=== PATIENT | female | born 1995 | race Caucasian/White ===

== ENCOUNTER 2017-06-28 11:35 | Emergency (ER) | payer OTHER ==
--- NOTE | 2017-06-28 11:58 | ER Document Report ---
HPI - HPI Patient complains to provider of: sore throat Onset: Last week Onset/Duration: Persistent, Worse Severity: Severe Pain Level: 5 Context: Patient presents emergency department with complaints of severe sore throat. She reports it started last week. She went to an urgent care had a strep test done and it was negative. [place] and it was negative. She also had an ultrasound and a mono test completed, all were negative. She is unsure if a throat culture was completed. Patient reports she was treated with Zithromax and is just finishing the Zithromax today. She reports her throat is swelling more, more on the right side than on the left side. Reports it hurts when she tries to swallow but she reports she is able to swallow. Patient also reports she has had a fever all week long. She reports no fever this morning no antipyretic taken. Denies vomiting diarrhea. Associated Symptoms: Fever Exacerbated by: Denies Relieved by: Denies Similar symptoms previously: Yes Recently seen / treated by doctor: Yes - REPRODUCTIVE Reproductive: DENIES: : Past Medical History - General Information source: Patient Last Menstrual Period: current - Social History Smoking Status: Unknown if Ever Smoked Cigarette use (# per day): No Frequency of alcohol use: None Drug Abuse: None Lives with: Family Family History: Reviewed & Not Pertinent - Medical History Medical History: Negative Past Surgical History: Reports: Hx Orthopedic Surgery - spinal fusion - Immunizations Immunizations up to date: Yes Hx Diphtheria, Pertussis, Tetanus Vaccination: Yes Vertical Provider Document - CONSTITUTIONAL Agree With Documented VS: Yes Exam Limitations: No Limitations General Appearance: WD/WN, No Apparent Distress - nontoxic looking - INFECTION CONTROL TRAVEL OUTSIDE OF THE [place] IN LAST 30 DAYS: No - HEENT HEENT: Atraumatic, Normocephalic, Pharyngeal Exudate. negative: Conjuctival Injection, Tympanic Membrane Red - NECK Neck: Normal Inspection, Supple. negative: Lymphadenopathy-Left, Lymphadenopathy-Right - RESPIRATORY Respiratory: Breath Sounds Normal, No Respiratory Distress - CARDIOVASCULAR Cardiovascular: Regular Rate - MUSCULOSKELETAL/EXTREMETIES Musculoskeletal/Extremeties: CASIMIRO SINCLAIR - NEURO Level of Consciousness: Awake, Alert, Appropriate Motor/Sensory: No Motor Deficit - DERM Integumentary: Warm, Dry Course - Re-evaluation Re-evalutation: 06/28/17 12:[address] soft tissue neck to evaluate for abscess. also do another strep and throat culture. 06/28/17 ct neg for abscess, strep neg. culture pending. I had planned to prescribe steroid injection and possible antibiotics but found the patient just had a steroid injection and is finishing her Zithromax now. Patient was instructed on warm saltwater gargles importance of monitoring symptoms return here if she has trouble swallowing. Patient was also instructed that if the culture comes back and she needs antibiotics different antibiotic she will be contacted. Patient verbalized understanding tall instructions. - Vital Signs Vital signs: Temp Pulse Resp BP Pulse Ox 98.4 F 85 18 103/67 97 06/28/17 11:43 06/28/17 11:43 06/28/17 11:43 06/28/17 11:43 06/28/17 11:43 - Diagnostic Test Radiology reviewed: Image reviewed, Reports reviewed - TECHNIQUE: Post IV contrasted scanning from skull base through lung apices with review of bone, soft tissue and lung windows. Reconstructed coronal and sagittal MPR images reviewed. All images stored on PACS. All CT scanners at this facility use dose modulation, iterative reconstruction, and/or weight based dosing when appropriate to reduce radiation dose to as low as reasonably achievable (ALARA) . [facility]: Dose Right [facility]: CareDose [facility]: Dose Right [facility]: Teradose 4D [facility]: Brain Parade CONTRAST TYPE AND DOSE: contrast/concentration: Isovue 370.00 mg/ ml; Total Contrast Delivered: 75.0 ml; Total Saline Delivered: 55.1 ml RENAL FUNCTION: None required. The patient is less than 50 years old. RADIATION DOSE : CT Rad equipment meets quality standard of care and radiation dose reduction techniques were employed. CTDIvol: 6.6 mGy. DLP: 177 mGy-cm. . LIMITATIONS: None. FINDINGS: SKULL BASE: Inferior brain parenchyma unremarkable MAJOR SALIVARY GLANDS: No solid or cystic masses. No inflammatory changes. LYMPHADENOPATHY: Reactive adenopathy is present, right jugulodigastric lymph node is 1.9 x 1.5 cm in size. Left jugulodigastric lymph node 1.6 x 1 cm in size. MUCOSAL MASSES OR ASYMMETRY: Bilateral pharyngeal tonsils are enlarged, the right tonsil is 2 cm AP x 2 cm transverse by 3 cm craniocaudad. Left tonsil is 2 cm AP x 2 cm transverse by 3.5 cm craniocaudad. No discrete intra tonsillar or peritonsillar abscess. LARYNX/CORDS: No abnormal findings. VASCULAR STRUCTURES: The major vessels are patent. LUNG APICES: Clear. BONES: Intact. THYROID: Normal size. No masses. PARANASAL SINUSES: Clear. OTHER: No other significant finding. IMPRESSION: Enlarged pharyngeal tonsils. No intra tonsillar or peritonsillar abscess. Reactive adenopathy Discharge - Discharge Clinical Impression: Sore throat, Tonsillar exudate Condition: Stable Disposition: HOME, SELF-CARE Instructions: ENT, Use of [id number] Ibuprofen ([facility]), Sore Throat ([facility]) Additional Instructions: *You have been evaluated for a sore throat, tonsillar exudate *A throat culture is pending, you will be contacted should you need another antibiotic *Take ibuprofen or tylenol as indicated for pain *Warm salt water gargles and throat lozenges for comfort *Change toothbrush after two days of finishing your antibiotics *Do not let anyone drink/eat after you *Good hand washing *Follow-up with a primary care provider Friday *Follow up with an ENT *Return to ED for worsening condition change, needs
--- NOTE | 2017-06-28 12:52 | RADIOLOGY REPORT (SQ) ---
EXAM DESCRIPTION: CT SOFT TISSUE NECK WITH COMPLETED DATE/TIME: 06/28/2017 12:27 pm REASON FOR STUDY: increased swelling, diff swallowing COMPARISON: None. TECHNIQUE: Post IV contrasted scanning from skull base through lung apices with review of bone, soft tissue and lung windows. Reconstructed coronal and sagittal MPR images reviewed. All images stored on PACS. All CT scanners at this facility use dose modulation, iterative reconstruction, and/or weight based d osing when appropriate to reduce radiation dose to as low as reasonably achievable (ALARA). [facility]: Dose Right [facility]: CareDose [facility]: Dose Right [facility]: Teradose 4D [facility]: LatinCoin CONTRAST TYPE AND DOSE: contrast/concentration: Isovue 370.00 mg/ml; Total Contrast Delivered: 75.0 ml; Total Saline Delivered: 55.1 ml RENAL FUNCTION: None required. The patient is less than 50 years old. RADIATION DOSE: CT Rad equipment meets quality standard of care and radiation dose reduction techniq ues were employed. CTDIvol: 6.6 mGy. DLP: 177 mGy-cm. . LIMITATIONS: None. FINDINGS: SKULL BASE: Inferior brain parenchyma unremarkable MAJOR SALIVARY GLANDS: No solid or cystic masses. No inflammatory changes. LYMPHADENOPATHY: Reactive adenopathy is present, right jugulodigastric lymph node is 1.9 x 1.5 cm in size. Left jugulodigastric lymph node 1.6 x 1 cm in size. MUCOSAL MASSES OR ASYMMETRY: Bilateral pharyngeal tonsils are enlarged, the right tonsil is 2 cm AP x 2 cm transverse by 3 cm craniocaudad. Left tonsil is 2 cm AP x 2 cm transverse by 3.5 cm craniocaud ad. No discrete intra tonsillar or peritonsillar abscess. LARYNX/CORDS: No abnormal findings. VASCULAR STRUCTURES: The major vessels are patent. LUNG APICES: Clear. BONES: Intact. THYROID: Normal size. No masses. PARANASAL SINUSES: Clear. OTHER: No other significant finding. IMPRESSION: Enlarged pharyngeal tonsils. No intra tonsillar or peritonsillar abscess. Reactive cronell nopathy. TECHNICAL DOCUMENTATION: JOB ID: [id number] Quality ID # [id number]: Final reports with documentation of one or more dose reduction techniques (e.g., Au tomated exposure control, adjustment of the mA and/or kV according to patient size, use of iterative reconstruction technique) 2010 [employer]- All Rights Reserved Reading location - IP/workstation name: [email or web address]
[2017-06-28] MEDS ORDERED: IBUPROFEN 800 MG TABLET PO ONE (13:22)
[2017-06-28 13:51] VITALS: BP 114/71
== END 2017-06-28 13:52 | disposition home or self-care (01) ==
LOC: ER 11:35
DX: J02.9 Acute pharyngitis, unspecified (principal); J35.1 Hypertrophy of tonsils; R50.9 Fever, unspecified
CPT/HCPCS: 70491; 87070; 87880; 99283

== ENCOUNTER 2018-04-16 23:50 | Emergency (ER) | payer SELFPAY ==
[2018-04-17] MEDS ORDERED: NORMAL SALINE 1000 ML 1,000 ML IV ONE (00:51)
[2018-04-17 00:59] LABS: APPEARANCE,URINE CLEAR; BILIRUBIN,URINE NEGATIVE (NEGATIVE); COLOR,URINE AMBER; GLUCOSE, URINE NEGATIVE (NEGATIVE); KETONES,URINE NEGATIVE (NEGATIVE); LEUKOCYTE ESTERASE,URINE MODERATE (NEGATIVE); NITRITE,URINE POSITIVE (NEGATIVE); PROTEIN,URINE 30 mg/dL (NEGATIVE); URINE SPECIFIC GRAVITY 1.011
--- NOTE | 2018-04-17 01:02 | ER Document Report ---
ED General - General Chief Complaint: Flank Pain Stated Complaint: FLANK PAIN Time Seen by Provider: 04/17/18 00:32 Notes: Patient is a 22-year-old female presents with complaint of dysuria. She says she first noticed in some urinary urgency and dysuria approximately 4 days ago. She took Azo which seemed to help but now it is not helping anymore. Said earlier today she had limited pain over her left back. Said that is improving. No fevers. No vomiting. Some nausea. No diarrhea. No abdominal pain. No other complaints at this time. TRAVEL OUTSIDE OF THE [place] IN LAST 30 DAYS: No - Related Data Allergies/Adverse Reactions: amoxicillin [Amoxicillin] Allergy (Verified 06/28/17 11:36) fruits and vegetables Allergy (Uncoded 06/28/17 11:36) Past Medical History - Social History Smoking Status: Unknown if Ever Smoked Frequency of alcohol use: None Drug Abuse: None Family History: Reviewed & Not Pertinent Renal/ Medical History: Denies: Hx Peritoneal Dialysis Past Surgical History: Reports: Hx Orthopedic Surgery - spinal fusion - Immunizations Immunizations up to date: Yes Hx Diphtheria, Pertussis, Tetanus Vaccination: Yes Review of Systems - Review of Systems Notes: My Normal Review Basic REVIEW OF SYSTEMS: CONSTITUTIONAL : Denies fever, chills, or sweats. Denies recent illness. GASTROINTESTINAL: Denies abdominal pain. Some nausea. No vomiting. GENITOURINARY: Burning with urination. Urinary frequency. FEMALE GENITOURINARY: Denies vaginal bleeding, abnormal or irregular periods. MUSCULOSKELETAL: Mild left-sided back pain. NEUROLOGICAL: Denies altered mental status or loss of consciousness. ALL OTHER SYSTEMS REVIEWED AND NEGATIVE. Physical Exam - Vital signs Vitals: Temp Pulse BP Pulse Ox 98.0 F 95 112/72 96 04/17/18 00:00 04/17/18 00:00 04/17/18 00:00 04/17/18 00:00 - Notes Notes: General Appearance: Well nourished, alert, cooperative, no acute distress, no obvious discomfort. well-appearing. Vitals: reviewed, See vital signs table. Lungs: No wheezing, No rales, No rhonci, No accessory muscle use, good air exchange bilaterally. Abdomen: Normal BS, soft, No rigidity, No abdominal tenderness, No guarding, no rebound, no abdominal masses, no organomegaly Back: Negative Igor sign bilaterally. Neuro: speech clear, oriented x 3, normal affect, responds appropriately to questions. Course - Re-evaluation Re-evalutation: 04/17/18 01:22 Patient's urinalysis confirms urinary tract infection which is very consistent with the symptoms that she is presenting with. I do not suspect kidney stone and that she does not have severe pain rating from her back around her flank and she looks very comfortable and is not had any vomiting. At this time I feel she safe to be discharged home. I will give her a dose of Keflex. I informed her that if she develops any rash or itching to take Benadryl to return to the ER. I encouraged her return to ER immediately if she has fevers, vomiting, severe pain, or if she feels that she is worsening in any way. Patient agrees with plan and will be discharged home. Dictation of this chart was performed using voice recognition software; therefore, there may be some unintended grammatical errors. - Vital Signs Vital signs: Temp Pulse Resp BP Pulse Ox 98.0 F 95 112/72 96 04/17/18 00:00 04/17/18 00:00 04/17/18 00:00 04/17/18 00:00 - Laboratory Laboratory results interpreted by me: 04/16/18 23:59 Urine Protein 30 H Urine Blood MODERATE H Urine Nitrite POSITIVE H Urine Urobilinogen 4.0 H Ur Leukocyte Esterase MODERATE H Discharge - Discharge Clinical Impression: Urinary tract infection Qualifiers: Urinary tract infection type: site unspecified Hematuria presence: with hematuria Qualified Code(s): N39.0 - Urinary tract infection, site not specified; R31.9 - Hematuria, unspecified Condition: Good Disposition: HOME, SELF-CARE Additional Instructions: URINARY TRACT INFECTION: Your evaluation indicates that you have a urinary tract infection. This is due to germs growing in the bladder. This is a common problem. This infection usually responds quickly to antibiotics. Your antibiotic should be taken exactly as prescribed. Drink plenty of fluids -- three to four quarts a day. Occasionally, a bladder anesthetic will be prescribed to help stop the feeling of urgency until the antibiotic has a chance to clear the infection. This may cause your urine to be dark orange. Certain urine infections require a culture. If the doctor obtained a culture, the results will be back in two days. You should call to see if a change in treatment is needed. A repeat urinalysis after you finish treatment is often recommended. The physician will let you know if further testing is required. Call the doctor if you develop fever, chills, flank pain, inability to urinate, or blood in the urine. ANTIBIOTIC THERAPY: You have been given an antibiotic prescription. It's important that you take all the medication, unless instructed otherwise by your physician. Failure to complete the entire course can result in relapse of your condition. Common side effects of antibiotics include nausea, intestinal cramping, or diarrhea. Women may develop vaginal yeast infections, and babies can get yeast (thrush) in the mouth following the use of antibiotics. Contact your physician if you develop significant side effects from this medication. Allergy to this antibiotic can result in hives, wheezing, faintness, or itching. If symptoms of allergy occur, stop the medication and call the doctor. CEPHALEXIN: The antibiotic you've been prescribed is a member of the cephalosporin class. This type of antibiotic covers a wide variety of infections, including those of the skin, lungs, and urinary tract. It's useful for staph infections. This antibiotic is slightly similar to the penicillin family. In rare cases, a person who is allergic to penicillin will also be allergic to this medication. If you have had a severe allergic reaction to penicillin, and have not taken this antibiotic since that time, notify your doctor. Antibiotics which cover many germs ("broad spectrum" antibiotics) are more likely to cause diarrhea or "yeast" infections. Women prone to vaginal yeast problems may suffer an attack after taking this antibiotic. In infants, oral thrush (white spots "stuck" on the cheek) or yeast diaper rash may result. See your doctor if these problems occur. Call at once if you develop itching, hives, shortness of breath, or lightheadedness. FOLLOW-UP CARE: If you have been referred to a physician for follow-up care, call the physicians office for an appointment as you were instructed or within the next two days. If you experience worsening or a significant change in your symptoms, notify the physician immediately or return to the Emergency Department at any time for re-evaluation. Please return to the ER immediately if you develop vomiting, fevers, severe pain into your back or flank, or if you feel that you are worsening in any way. Prescriptions: Cephalexin Monohydrate [Keflex 500 mg Capsule] 500 mg PO BID 5 Days #10 capsule
[2018-04-17] MEDS ORDERED: CEPHALEXIN 500 MG CAPSULE PO ONE (01:18)
[2018-04-17 01:54] VITALS: BP 115/70
== END 2018-04-17 01:35 | disposition home or self-care (01) ==
LOC: ER 23:50
DX: N39.0 Urinary tract infection, site not specified (principal); R31.9 Hematuria, unspecified; R11.0 Nausea; Z98.1 Arthrodesis status; M54.89 Other dorsalgia; Z88.0 Allergy status to penicillin; Z91.018 Allergy to other foods
CPT/HCPCS: 81001; 81025; 99283

== ENCOUNTER 2018-05-26 09:08 | Emergency (ER) | payer SELFPAY ==
[2018-05-26] MEDS ORDERED: NORMAL SALINE 1000 ML 1,000 ML IV ONE ×2 (10:14→10:15)
--- NOTE | 2018-05-26 10:14 | ER Document Report ---
ED General - General Chief Complaint: Nausea/Vomiting/Diarrhea Stated Complaint: VOMITING Time Seen by Provider: 05/26/18 10:10 Primary Care Provider: PENELOPE CHILEL MD [COMMUNITY BASED STAFF] - Follow up in 3-5 days (or your primary care. ) Notes: Patient is a 22-year-old female that presents to the emergency department for chief complaint of nausea, vomiting and diarrhea. Patient reports that the symptoms started around 1 AM this morning, was severe nausea, and had vomiting just prior to ED arrival, and several episodes of having loose stool. Denies any new foods, or undercooked foods, no sick contacts that she is aware of, she is had some abdominal aching, but otherwise denies any significant abdominal pain. Denies any hematuria, dysuria, vaginal bleeding or discharge. She does not believe that she is currently. Past Medical History: Denies chronic medical conditions Past Surgical History: Spinal fusion surgery Social History: Admits to occasional alcohol use, denies tobacco or drug use. Family History: Reviewed and noncontributory for presenting illness Allergies: Reviewed, see documented allergy list. REVIEW OF SYSTEMS: Other than noted above, the 12 point review of systems was reviewed with the patient and were negative, all pertinent findings are included in the HPI. PHYSICAL EXAMINATION: Vital signs reviewed, nursing noted reviewed. GENERAL: Patient appears mildly dehydrated, but in no acute distress HEAD: Atraumatic, normocephalic. EYES: Eyes appear normal, extraocular movements intact, sclera anicteric, conjunctiva are normal. ENT: nares patent, oropharynx clear without exudates. Mucous membranes appear mildly dry NECK: Normal range of motion, supple without lymphadenopathy LUNGS: Breath sounds clear to auscultation bilaterally and equal. No wheezes rales or rhonchi. HEART: Heart rate tachycardic, regular rhythm. ABDOMEN: Soft, nontender, normoactive bowel sounds. No rebound, guarding, or rigidity. No masses appreciated. EXTREMITIES: Nontender, good range of motion, no pitting or edema. NEUROLOGICAL: No focal neurological deficits. Moves all extremities spontaneously Motor and sensory grossly intact on exam. PSYCH: Normal mood, normal affect. SKIN: Warm, Dry, normal turgor, no rashes or lesions noted on exposed skin TRAVEL OUTSIDE OF THE [place] IN LAST 30 DAYS: No - Related Data Allergies/Adverse Reactions: amoxicillin [Amoxicillin] Allergy (Verified 05/26/18 09:16) fruits and vegetables Allergy (Uncoded 06/28/17 11:36) Past Medical History - Social History Smoking Status: Never Smoker Family History: Reviewed & Not Pertinent Renal/ Medical History: Denies: Hx Peritoneal Dialysis Past Surgical History: Reports: Hx Orthopedic Surgery - spinal fusion - Immunizations Immunizations up to date: Yes Hx Diphtheria, Pertussis, Tetanus Vaccination: Yes Physical Exam - Vital signs Vitals: Temp Pulse Resp BP Pulse Ox 97.6 F 131 H 18 104/66 99 05/26/18 09:22 05/26/18 09:22 05/26/18 09:22 05/26/18 09:22 05/26/18 09:22 Course - Re-evaluation Re-evalutation: Patient seen and examined vital signs reviewed. Laboratory data and imaging were ordered as appropriate for the patient's presenting symptoms and complaint, with consideration of any critical or life threatening conditions that may be associated with their obtained history and exam as noted above. Patient was treated with 2 L of IV fluids and Zofran Results were reviewed when available and demonstrated mild leukocytosis, likely secondary to the patient's vomiting and diarrhea, UA was negative for signs of urinary tract infection, did have mild ketones consistent with dehydration, patient was well-hydrated in the ED The patient was re-evaluated and was stable and felt improved Evaluation was most consistent with nausea, vomiting diarrhea, nonspecific, most likely viral, will prescribe the patient Zofran for at home nausea treatment, and advised to continue oral fluids to maintain hydration. Results were discussed with the patient at this point, after careful consideration I feel that that patient can be discharged from the emergency department, the patient was educated treatments and reasons to return to the emergency department based on their presumed diagnosis as noted above, they were advised to followup with a primary care physician in 2-3 days. Patient was agreeable to plan of care. *Note is created using voice recognition software and may contain spelling, syntax or grammatical errors. Laboratory 05/26/18 05/26/18 05/26/18 09:26 10:52 10:52 WBC 11.1 H RBC 5.18 Hgb 15.1 Hct 43.6 MCV 84 MCH 29.2 MCHC 34.6 RDW 12.9 Plt Count 273 Total Counted 100 Seg Neutrophils % Not Reportable Seg Neuts % (Manual) 89 H Band Neutrophils % 7 H Lymphocytes % Not Reportable Lymphocytes % (Manual) 3 L Monocytes % Not Reportable Monocytes % (Manual) 1 L Eosinophils % Not Reportable Eosinophils % (Manual) 0 Basophils % Not Reportable Basophils % (Manual) 0 Absolute Neutrophils Not Reportable Abs Neuts (Manual) 10.7 H Absolute Lymphocytes Not Reportable Abs Lymphs (Manual) 0.3 L Absolute Monocytes Not Reportable Abs Monocytes (Manual) 0.1 Absolute Eosinophils Not Reportable Absolute Eos (Manual) 0.0 Absolute Basophils Not Reportable Abs Basophils (Manual) 0.0 Large Platelets PRESENT Platelet Comment ADEQUATE Poikilocytosis SLIGHT Ovalocytes SLIGHT Sodium 139.8 Potassium 5.0 Chloride 101 Carbon Dioxide 26 Anion Gap 13 BUN 20 Creatinine 0.69 Est GFR ( Amer) > 60 Est GFR (Non-Af Amer) > 60 Glucose 95 Calcium 10.7 H Total Bilirubin 0.9 Direct Bilirubin 0.3 Neonat Total Bilirubin Not Reportable Neonat Direct Bilirubin Not Reportable Neonat Indirect Bili Not Reportable AST 35 ALT 26 Alkaline Phosphatase 78 Total Protein 8.9 H Albumin 5.0 Lipase 44.1 Urine Color YELLOW Urine Appearance TURBID Urine pH 5.0 Ur Specific [place] 1.028 Urine Protein 30 H Urine Glucose (UA) NEGATIVE Urine Ketones TRACE H Urine Blood SMALL H Urine Nitrite NEGATIVE Urine Bilirubin NEGATIVE Urine Urobilinogen NEGATIVE Ur Leukocyte Esterase NEGATIVE Urine RBC (Auto) 2 Amorphous Sediment Auto 1+ Urine Mucus (Auto) OCC Urine Ascorbic Acid NEGATIVE Urine HCG, Qual NEGATIVE - Vital Signs Vital signs: Temp Pulse Resp BP Pulse Ox 98.0 F 109 H 18 95/59 L 100 05/26/18 12:41 05/26/18 12:41 05/26/18 12:41 05/26/18 12:41 05/26/18 12:41 - Laboratory Result Diagrams: 05/26/18 10:52 05/26/18 10:52 Laboratory results interpreted by me: 05/26/18 05/26/18 05/26/18 09:26 10:52 10:52 WBC 11.1 H Seg Neuts % (Manual) 89 H Band Neutrophils % 7 H Lymphocytes % (Manual) 3 L Monocytes % (Manual) 1 L Abs Neuts (Manual) 10.7 H Abs Lymphs (Manual) 0.3 L Calcium 10.7 H Total Protein 8.9 H Urine Protein 30 H Urine Ketones TRACE H Urine Blood SMALL H Discharge - Discharge Clinical Impression: Nausea and vomiting Qualifiers: Vomiting type: unspecified Vomiting Intractability: non-intractable Qualified Code(s): R11.2 - Nausea with vomiting, unspecified Diarrhea Qualifiers: Diarrhea type: unspecified type Qualified Code(s): R19.7 - Diarrhea, unspecified Condition: Stable Disposition: HOME, SELF-CARE Instructions: Diarrhea, Nonspecific ([facility]), Vomiting ([facility]) Additional Instructions: Please take the prescribed medication for nausea to avoid any further vomiting, and to maintain your hydration, drink plenty of fluids at least 2-2-1/2 L of clear liquids, that includes sports drinks, and water and broth. Prescriptions: Ondansetron [Zofran Odt 4 mg Tablet] 1 tab PO Q8H PRN #15 tab.rapdis PRN Reason: For Nausea/Vomiting Referrals: PENELOPE CHILEL MD [COMMUNITY BASED STAFF] - Follow up in 3-5 days (or your primary care. )
[2018-05-26] MEDS ORDERED: ONDANSETRON HCL INJ/PF 4 MG/2 ML SDV IV ONE (10:15)
[2018-05-26 10:51] LABS: AMORPHOUS SEDIMENT,URINE 1+ /HPF; APPEARANCE,URINE TURBID; BILIRUBIN,URINE NEGATIVE (NEGATIVE); COLOR,URINE YELLOW; GLUCOSE, URINE NEGATIVE (NEGATIVE); KETONES,URINE TRACE mg/dL (NEGATIVE); LEUKOCYTE ESTERASE,URINE NEGATIVE (NEGATIVE); NITRITE,URINE NEGATIVE (NEGATIVE); PROTEIN,URINE 30 mg/dL (NEGATIVE); URINE SPECIFIC GRAVITY 1.028; UROBILINOGEN,URINE NEGATIVE mg/dL (<2.0)
[2018-05-26 11:01] LABS: HEMATOCRIT 43.6 % (36.0-47.0); HEMOGLOBIN 15.1 g/dL (12.0-15.5); MEAN CORPUSCULAR HEMOGLOBIN 29.2 pg (27.0-33.4); MEAN CORPUSCULAR HGB CONC 34.6 g/dL (32.0-36.0); MEAN CORPUSCULAR VOLUME 84 fl (80-97); PLATELET COUNT 273 10^3/uL (150-450); RED BLOOD COUNT 5.18 10^6/uL (3.72-5.28); RED CELL DISTRIBUTION WIDTH 12.9 % (11.5-14.0); WHITE BLOOD COUNT 11.1 10^3/uL (4.0-10.5)
[2018-05-26 11:23] LABS: ALANINE AMINOTRANSFERASE 26 U/L (9-52); ALKALINE PHOSPHATASE 78 U/L (38-126); ANION GAP 13 (5-19); ASPARTATE AMINO TRANSFERASE 35 U/L (14-36); BILIRUBIN,DIRECT 0.3 mg/dL (0.0-0.4); BILIRUBIN,TOTAL 0.9 mg/dL (0.2-1.3); BLOOD UREA NITROGEN 20 mg/dL (7-20); CALCIUM 10.7 mg/dL (8.4-10.2); CARBON DIOXIDE 26 mmol/L (22-30); CHLORIDE 101 mmol/L (98-107); GLUCOSE 95 mg/dL (75-110); LIPASE 44.1 U/L (23-300); SODIUM 139.8 mmol/L (137-145); TOTAL PROTEIN 8.9 g/dL (6.3-8.2)
[2018-05-26 11:46] LABS: ABSOLUTE LYMPHOCYTES# (MANUAL) 0.3 10^3/uL (0.5-4.7); ABSOLUTE MONOCYTES # (MANUAL) 0.1 10^3/uL (0.1-1.4); ABSOLUTE NEUTROPHILS# (MANUAL) 10.7 10^3/uL (1.7-8.2); BAND NEUTROPHILS % (MANUAL) 7 % (3-5); BASOPHILS % (MANUAL) 0 % (0-2); EOSINOPHILS % (MANUAL) 0 % (0-6); LYMPHOCYTES % (MANUAL) 3 % (13-45); MONOCYTES % (MANUAL) 1 % (3-13); SEGMENTED NEUTROPHILS % (MAN) 89 % (42-78); TOTAL CELLS COUNTED 100
[2018-05-26 11:47] LABS: OVALOCYTES SLIGHT; PLATELET COMMENT ADEQUATE; PLATELET LARGE PRESENT; POIKILOCYTOSIS SLIGHT
[2018-05-26 12:44] VITALS: BP 95/59
== END 2018-05-26 12:44 | disposition home or self-care (01) ==
LOC: ER 09:08
DX: R11.2 Nausea with vomiting, unspecified (principal); R19.7 Diarrhea, unspecified
CPT/HCPCS: 99284; 96361; 96374; 36415; 83690; 85025; 81025; 80053; 81001; J2405; J7030

== ENCOUNTER 2018-09-04 19:11 | Emergency (ER) | payer SELFPAY ==
[2018-09-04] MEDS ORDERED: HYDROCODONE/ACETAMINOPHEN 5-325 MG TABLET PO ONE (20:47)
[2018-09-04] MEDS ORDERED: KETOROLAC TROMETHAMINE 60 MG/2 ML SDV IM ONE ×2 (20:47→23:49)
[2018-09-04] MEDS ORDERED: LIDOCAINE 5% (700 MG) TRANSDERMAL ADH..PATCH TP ONE ×3 (20:47→23:49)
--- NOTE | 2018-09-04 20:50 | ER Document Report ---
ED Medical Screen (RME) - General Chief Complaint: Back Pain Stated Complaint: BACK PAIN Time Seen by Provider: 09/04/18 20:27 Mode of Arrival: Wheelchair Information source: Patient Notes: Patient is a 23-year-old female presented to the emergency department chief complaint of acute low back pain. Patient reports she was lifting up a stroller when she all of a sudden felt and heard a pop and now has severe pain running down her left leg. Patient reports history of spinal fusion and placement of rods for scoliosis. Exam: Patient alert, oriented, answering all questions appropriately. Equal associate media planner strength bilaterally to upper extremities. No unilateral weakness, numbness or tingling. Tenderness to lumbar paraspinous area on the left side. Vertebral tenderness to the lumbar area. I have greeted and performed a rapid initial assessment of this patient. A comprehensive ED assessment and evaluation of the patient, analysis of test results and completion of the medical decision making process will be conducted by additional ED providers. I have specifically instructed the patient or family members with the patient to immediately return to any nursing staff should anything change in the patient's condition or with their chief complaint. This medical record was dictated with voice recognizing software. There may be grammatical, syntax errors that are unintended. TRAVEL OUTSIDE OF THE [place] IN LAST 30 DAYS: No - Related Data Allergies/Adverse Reactions: amoxicillin [Amoxicillin] Allergy (Verified 05/26/18 09:16) fruits and vegetables Allergy (Uncoded 06/28/17 11:36) Past Medical History - Social History Chew tobacco use (# tins/day): Yes Frequency of alcohol use: Rare Drug Abuse: None Renal/ Medical History: Denies: Hx Peritoneal Dialysis Past Surgical History: Reports: Hx Orthopedic Surgery - spinal fusion - Immunizations Immunizations up to date: Yes Hx Diphtheria, Pertussis, Tetanus Vaccination: Yes Physical Exam - Vital signs Vitals: Temp Pulse Resp BP Pulse Ox 98.3 F 96 16 116/69 99 09/04/18 19:24 09/04/18 19:24 09/04/18 19:24 09/04/18 19:09/04/18 19:24 Course - Vital Signs Vital signs: Temp Pulse Resp BP Pulse Ox 98.3 F 96 16 116/69 99 09/04/18 19:24 09/04/18 19:24 09/04/18 19:24 09/04/18 19:24 09/04/18 19:24
--- NOTE | 2018-09-04 22:05 | RADIOLOGY REPORT (SQ) ---
EXAM DESCRIPTION: [facility]: XR LUMBAR SPINE ANTEROPOSTERIOR, LATERAL, AND OBLIQUES Views: 5 CLINICAL HISTORY: 23 years Female, felt pop afetr lifting, hx of surgery COMPARISON: None. FINDINGS: Highest [id number]-[id number] vertebra is considered as L1. Bilateral pedicle screws are noted at T11-L4, status post multilevel posterior fixation. There is no focal subluxation. Minimal levocurvature of the lumbar spine. Vertebral heights are preserved. No evidence for loosening of the pedicle screws. No hardware loosening. IMPRESSION: 1. No acute fracture or subluxation. 2. No evidence for hardware loosening, status post multilevel thoracolumbar fixation
[2018-09-05] MEDS ORDERED: METHOCARBAMOL 500 MG TABLET PO ONE (00:19)
--- NOTE | 2018-09-05 00:27 | ER Document Report ---
ED General - General Chief Complaint: Back Pain Stated Complaint: BACK PAIN Time Seen by Provider: 09/04/18 20:27 Mode of Arrival: Wheelchair Notes: Patient is a 23-year-old female who presents to the emergency department with a chief complaint of low back pain after lifting a stroller. She lifted up the stroller earlier today and she now has pain in her low back. She states she heard a pop. She is able to walk. States that she has pain that shoots down her legs. She denies any numbness or tingling. Patient does have history of a spinal fusion 5 years ago. Denies any past medical history. She does not take any medications. TRAVEL OUTSIDE OF THE [place] IN LAST 30 DAYS: No - Related Data Allergies/Adverse Reactions: amoxicillin [Amoxicillin] Allergy (Verified 05/26/18 09:16) fruits and vegetables Allergy (Uncoded 06/28/17 11:36) Past Medical History - General Information source: Patient - Social History Smoking Status: Never Smoker Chew tobacco use (# tins/day): Yes Frequency of alcohol use: Rare Drug Abuse: None Family History: Reviewed & Not Pertinent Patient has suicidal ideation: No Patient has homicidal ideation: No Renal/ Medical History: Denies: Hx Peritoneal Dialysis Past Surgical History: Reports: Hx Orthopedic Surgery - spinal fusion - Immunizations Immunizations up to date: Yes Hx Diphtheria, Pertussis, Tetanus Vaccination: Yes Review of Systems - Review of Systems Notes: REVIEW OF SYSTEMS: CONSTITUTIONAL : Denies recent illness. Denies recent unintentional weight loss. Denies fever, chills, or sweats. EENT: Denies eye, ear, throat, or mouth pain, discharge, or symptoms. Denies nasal or sinus congestion. CARDIOVASCULAR: Denies chest pain. RESPIRATORY: Denies shortness of breath, cough, congestion, difficulty breathing, or wheezing. GASTROINTESTINAL: Denies nausea, vomiting, and diarrhea. Denies abdominal pain. Denies constipation. GENITOURINARY: Denies difficulty urinating, burning, blood in urine, urgency or frequency. MUSCULOSKELETAL: See HPI SKIN: Denies rash, itchiness, or lesions HEMATOLOGIC : Denies easy bruising or bleeding. LYMPHATIC: Denies swollen, painful, enlarged glands. NEUROLOGICAL: Denies no numbness or tingling denies weakness. Denies headache. Denies altered mental status. Denies alteration in speech. PSYCHIATRIC: Denies stress, anxiety, alteration in sleep patterns, or depression. All other systems reviewed and negative. Physical Exam - Vital signs Vitals: Temp Pulse Resp BP Pulse Ox 98.3 F 96 16 116/69 99 09/04/18 19:24 09/04/18 19:24 09/04/18 19:24 09/04/18 19:24 09/04/18 19:24 - Notes Notes: PHYSICAL EXAMINATION: GENERAL: Appears well, healthy, well-nourished, no acute distress. HEAD: Normocephalic, atraumatic. EYES: PERRL, conjunctiva normal, all extraocular movements intact, sclera nonicteric ENT: Moist mucous membranes. NECK: Supple, no noticeable swelling, redness, rash. Normal range of motion. LUNGS: Equal breath sounds bilaterally and clear to auscultation. No wheezes rales or rhonchi. CARDIOVASCULAR: S1-S2, regular rate, regular rhythm. Radial pulses 2+, normal. ABDOMEN: Normoactive bowel sounds. Soft, nontender, no guarding, no rebound tenderness, and no masses palpated. EXTREMITIES: Normal strength and range of motion, no pitting or edema. No cyanosis. NEUROLOGICAL: Moves all extremities upon command. Strength 5/5 in all extremities. PSYCH: Normal mood, normal affect. SKIN: Warm, dry. No rash, lesions, ulcerations noted. Normal skin turgor. BACK: Tenderness noted to left lower back and in para spinal muscles. Course - Re-evaluation Re-evalutation: 09/05/18 00:45 The patient apparently did not receive a lidocaine patch for Toradol in triage. She will receive a dose and will be reassessed. Differential diagnosis for back pain includes muscle spasm, muscle strain, slipped disc cauda equina syndrome, vertebral fracture, vertebral tumor, epidural abscess, pyelonephritis, or AAA. Based on history and exam, the most likely etiology of the patient's back pain is muscle related. Emergent MRI is not indicated at this time because the patient does not have new weakness, or cauda equina syndrome. Patient does not have bladder or bowel dysfunction. Patient does not have history of IV drug use, therefore, I do not suspect an epidural abscess. Patient does not have recent weight loss or night sweats, and does not have a known history of cancer. 09/05/18 01:45 Patient states that she is still in pain. She will receive a dose of Dilaudid to help with her pain. 09/05/18 01:30 Patient's urinalysis is negative, ruling out any kidney stone. Patient was itchy after she received some Dilaudid. She will receive a dose of Benadryl. 09/05/18 01:45 Patient states the pain is better. She will follow-up with [facility]surgery, as this is the closest center to where she lives. Follow-up precautions were given. Verbal discharge instructions were given to the patient. They verbalized understanding. They are stable for discharge. - Vital Signs Vital signs: Temp Pulse Resp BP Pulse Ox 98.3 F 96 16 120/64 99 09/04/18 19:24 09/04/18 19:24 09/04/18 19:24 09/05/18 01:32 09/04/18 19:24 Discharge - Discharge Clinical Impression: Back pain Qualifiers: Back pain location: low back pain Chronicity: acute Back pain laterality: left Sciatica presence: with sciatica Sciatica laterality: bilateral sciatica Qualified Code(s): M54.42 - Lumbago with sciatica, left side Condition: Stable Disposition: HOME, SELF-CARE Additional Instructions: You were seen today in the emergency department for low back pain from lifting a stroller. Your x-ray is normal at this time and shows that the hardware is in place. Please follow-up with the neurosurgery office below in regards to this visit. You are being sent home with lidocaine patches and Robaxin to help with your pain. If you are unable to walk, have worsening symptoms, or have any symptoms that are worrisome to you, please return to the emergency department. [facility] [address] [place] [address] Prescriptions: Methocarbamol [Robaxin 500 mg Tablet] 1,000 mg PO QHS PRN #40 tablet PRN Reason: Lidocaine [Lidoderm 5% (700 mg) Transdermal Patch] 1 patch TP DAILY PRN #7 adh..patch PRN Reason:
[2018-09-05] MEDS ORDERED: HYDROMORPHONE HCL INJ/PF 2 MG/ML AMPULE IV ONE (01:01)
[2018-09-05] MEDS ORDERED: DIPHENHYDRAMINE HCL 50 MG/ML VIAL IV ONE (01:23)
[2018-09-05 01:25] LABS: APPEARANCE,URINE CLEAR; BILIRUBIN,URINE NEGATIVE (NEGATIVE); COLOR,URINE YELLOW; GLUCOSE, URINE NEGATIVE (NEGATIVE); KETONES,URINE NEGATIVE (NEGATIVE); URINE SPECIFIC GRAVITY 1.015
[2018-09-05 01:26] LABS: LEUKOCYTE ESTERASE,URINE NEGATIVE (NEGATIVE); NITRITE,URINE NEGATIVE (NEGATIVE); PROTEIN,URINE NEGATIVE (NEGATIVE); UROBILINOGEN,URINE NEGATIVE mg/dL (<2.0)
[2018-09-05 01:32] VITALS: BP 120/64
== END 2018-09-05 01:32 | disposition home or self-care (01) ==
LOC: ER 19:11
DX: M54.42 Lumbago with sciatica, left side (principal); M54.41 Lumbago with sciatica, right side; X50.0XXA Overexertion from strenuous movement or load, initial encounter; Y93.89 Activity, other specified; L29.9 Pruritus, unspecified; Z88.0 Allergy status to penicillin; Z91.018 Allergy to other foods; Z98.1 Arthrodesis status
CPT/HCPCS: 99283; 96372; 96374; 81001; 72110; J1885; J1170